=== PATIENT | male | born 1985 | race Caucasian/White ===

== ENCOUNTER 2017-09-05 23:42 | Emergency (ER) | payer BC ==
[2017-09-05 23:55] VITALS: PULSE 74; RESP 18; TEMP 97.4; O2SAT 100
[2017-09-06 00:36] VITALS: BP 132/68
== END 2017-09-06 00:34 | disposition home or self-care (01) ==
LOC: ED 23:42
DX: S43.101A Unspecified dislocation of right acromioclavicular joint, initial encounter (principal); W03.XXXA Other fall on same level due to collision with another person, initial encounter
CPT/HCPCS: 73000; 99282